=== PATIENT | male | born 2000 | race Caucasian/White ===

== ENCOUNTER 2025-02-14 20:23 | Inpatient (IN) | payer MEDICAID ==
[~2025-02-14] VITALS: Ht 177.8 cm; Wt 68.9 kg
[2025-02-14 19:10] VITALS: BP 111/53; PULSE 68; RESP 17; TEMP 98; O2SAT 98
--- NOTE | 2025-02-14 20:33 | ELECTROCARDIOGRAPH REPORT ---
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 Adams Cartagena Measurements Intervals [place] Rate: 94 P: 92 ID: [id number] QRS: 98 QRSD: 84 T: 38 QT: 311 QTc: 389 Interpretive Statements Sinus rhythm Right atrial enlargement Borderline right axis deviation LVH by voltage ST elev, probable normal early repol pattern Electronically Signed On 02-18-2025 21:45:[address] Adams Cartagena Please click the below link to view image of tracing.
[2025-02-14 20:44] LABS: MEAN PLATELET VOLUME 7.8 FL (7.4-10.4); RED CELL DISTRIBUTION WIDTH 14.7 % (11.5-14.5)
--- NOTE | 2025-02-14 20:59 | RADIOLOGY REPORT ---
CHEST RADIOGRAPH Indication: CP Technique: Single frontal view of the chest was obtained COMPARISON: None FINDINGS: Lungs and pleural spaces are clear. Cardiac silhouette and ralph are within normal limits. Bones and soft tissues demonstrate no significant abnormality. IMPRESSION: No acute disease.
[2025-02-14 21:04] LABS: CREATININE 1.20 MG/DL (0.60-1.10); PRO BRAIN NATRIURETIC PEPTIDE < 30 PG/ML (0-125); TOTAL CARBON DIOXIDE 26.6 MMOL/L (24-32); eCRCL 90 ML/MIN; eGFR 73 ML/MIN
[2025-02-14] MEDS: ketorolac trometh 30MG/ML vial 30 MG/ML VIAL IM ONE (23:12)
--- NOTE | 2025-02-15 00:12 | Physician Documentation ---
History of Present Illness ~ Chief Complaint: Chest Pain Stated Complaint: SOB/CP Time Seen by MD: 22:28 HPI Patient is a 25-year-old male that presents to the emergency department for acute onset of chest pain while watching football earlier this evening. Patient reports that he was sitting at his house comfortably in his chair has been yet to hurt describing it as someone squeezing his heart. 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 Patient denies any family history of arrhyt hmias angina palpitations or any other known cardiac history. Patient reports that he has some improvement in pain if he leans slightly forward. Patient denies any shortness of breath or any radiating pain at this time. Patient denies any significant past medical history at this time. Medication Reconciliation Allergies: Coded Allergies: No Known Allergies (Unverified , 02/14/25) Review of Systems ROS As stated above in the HPI, otherwise all systems are reviewed and negative. Physical Exam Vital Signs: Temperature: 98.2, Source: Oral, Heart Rate: 73, Respiratory Rate: 15, BP: 123/68, Pulse Oximetry: 97, Weight: 68.900 Oxygen Flow Rate: 0 Physical Exam VITALS: Reviewed and as above. GENERAL: Alert, no apparent distress. HEENT: Normocephalic, atraumatic, PERRL, EOMI, dry mucosa, no erythema RESPIRATORY: Lungs clear, normal breath sounds, no respiratory distress. CHEST: No accessory muscle use, no retractions CV: Regular rate, rhythm, no edema, no murmur, No: JVD, pain with pressure to the left chest, cardiac pain with position change during examination. GI: Soft, non-tender, bowels sounds present, no rebound, guarding, or rigidity BACK: No CVA tenderness, or swelling MUSCULOSKELETAL No deformities, no edema SKIN: Warm and dry, no rash NEURO: Oriented x4, No motor or sensory deficit PSYCH: Normal mood and affect, no agitation Progress Results/Orders Results/Orders Orders - MONICA CADE Hospitalist (02/15/25 00:06) Completed Orders - MONICA CADE Ketorolac Trometh 30mg/Ml Vial (Toradol (02/14/25 22:35) Morphine 4mg/Ml Inj. (Morphine Inj.) (02/15/25 00:05) Medications Received in ER Medications (Trade) Dose Ordered Sig/Xochilt Route PRN Reason Start Time Stop Time Status Last Admin Dose Admin (Toradol inj. 30mg/ml) 30 mg ONCE ONCE IM 02/14/25 22:35 02/14/25 22:36 DC 02/14/25 23:12 30 MG (morphine inj.) 4 mg ONCE ONCE IV 02/15/25 00:05 02/15/25 00:06 DC 02/15/25 00:25 4 MG Vital Signs 02/14/25 02/14/25 02/14/25 02/14/25 20:37 23:12 23:50 23:51 Temp 98.2 98.2 Pulse 80 73 Resp 16 20 15 B/P (MAP) 154/80 123/68 (86) Pulse Ox 97 97 O2 Flow Rate 0 0 Laboratory Tests Test 02/14/25 20:38 02/14/25 22:13 02/14/25 23:13 White Blood Count 9.6 Red Blood Count 5.10 Hemoglobin 15.9 Hematocrit 46.7 Mean Corpuscular Volume 91.6 Mean Corpuscular Hemoglobin 31.2 H Mean Corpuscular Hemoglobin Concent 34.0 Red Cell Distribution Width 14.7 H Platelet Count 296 Mean Platelet Volume 7.8 Neutrophils (%) (Auto) 63.5 Lymphocytes (%) (Auto) 27.7 Monocytes (%) (Auto) 7.2 Eosinophils (%) (Auto) 0.7 Basophils (%) (Auto) 0.9 Neutrophils # (Auto) 6.1 Lymphocytes # (Auto) 2.7 Monocytes # (Auto) 0.7 Eosinophils # (Auto) 0.1 Basophils # (Auto) 0.1 CBC Comment Sodium Level 142 Potassium Level 4.0 Chloride Level 109 H Carbon Dioxide Level 26.6 Anion Gap 6 L Blood Urea Nitrogen 16 Creatinine 1.20 H Estimated GFR/1.73 m2 73 BUN/Creatinine Ratio 13.3 Glucose Level 103 Calcium Level 9.1 Troponin I High Sensitivity 57 52 56 Pro-B-Type Natriuretic Peptide < 30 Albumin 3.7 Chemistry Comments Troponin I High Sens Percent Delta 8 7 Troponin I Hi Sens Absolute Change -5 4 Medical Decision Making Findings Exam without evidence of volume overload so doubt heart failure. Given the timing of pain to ER presentation, single troponin is elevated at 56 repeat troponin stable at 52 so doubt NSTEMI. Presentation not consistent with acute PE (Wells low risk PERC negative),pneumothorax (not visualized on chest xr), thoracic aortic dissection, pericarditis, tamponade, pneumonia (no infectious symptoms, clear chest xr), myocarditis (no recent illness, neg trop). Presentation most consistent with pericarditis at this time. EKG supports suspicion for pericarditis. So plan to admit patient for additional diagnostics and pain management. Patient given Toradol with minimal improvement. Morphine ordered we will reassess and 30 minutes. Consulted for admission waiting senior quality control technician back. Have given handoff on this patient to my attending Dr. Amaro. Differential Dx:Considerations: Include: angina, aortic dissection, chest wall pain, cholelithiasis, CHF, costochondritis, esophageal reflux/spasm, gastritis, herpes zoster, myocardial infarction, pericarditis, pleuritis, pancreatitis, pneumonia, pneumothorax, pulmonary embolus, other Departure Disposition: ADMITTED INPATIENT Impression: Primary Impression: Pericarditis Additional Impression: Chest pain Condition: Stable Additional Instructions: Exam without evidence of volume overload so doubt heart failure. Given the timing of pain to ER presentation, single troponin is elevated at 56 repeat troponin stable at 52 so doubt NSTEMI. Presentation not consistent with acute PE (Wells low risk PERC negative),pneumothorax (not visualized on chest xr), thoracic aortic dissection, pericarditis, tamponade, pneumonia (no infectious symptoms, clear chest xr), myocarditis (no recent illness, neg trop). Presentation most consistent with pericarditis at this time. EKG supports suspicion for pericarditis. So plan to admit patient for risk for additional diagnostics and pain management. Patient given Toradol with minimal improvement. Morphine ordered we will reassess and 30 minutes. Referrals: NO PRIMARY CARE PROVIDER (PCP) Education Educated: Patient Educated regarding: diagnosis, treatment, prognosis, need for follow up Signature Scribe Signature: A Attestation: Scribed for Monica Cade by JIMMY Frost . 02/15/25 00:39 MONICA CADE Feb 15, 2025 00:12
[2025-02-15] MEDS: morphine 4 MG/ML inj SYRINge IV ONE (00:25)
[2025-02-15] MEDS ORDERED: magnesium hydroxide 30ml (MOM) UD suspension PO PRN (01:25)
[2025-02-15] MEDS ORDERED: potassium Cl 40MEQ/1/2NS 520ml 520 ML IV PRN (01:25)
[2025-02-15] MEDS ORDERED: magnesium Cl slow-release 64mg tablet PO PRN (01:25)
[2025-02-15] MEDS ORDERED: potassium Cl 20 mEq SR tablet PO PRN ×2 (01:25)
[2025-02-15] MEDS ORDERED: magnesium sulf-water 2g/50mL 50 ML IV PRN (01:25)
--- NOTE | 2025-02-15 01:56 | HISTORY AND PHYSICAL-Residence ---
History & Physical Providers to CC Resident Creating Document: ROBYN IBRAHIM RES ~ History of Present Illness Primary Medical Doctor: none Reason for Admit\Complaint: Chest pain History of Present Illness 25-year-old male came to ED with complaints of chest pain and shortness of Breath. He reports that the chest pain started today morning at 6:30 a.m, associated with shortness of breath while he was at rest and watching football. He states that it was at a severity of 8/10. He states that chest pain has been squeezing type of pain, constant, and slightly reduced now, at a severity of 6/10 after pain medication. He reports no radiation of pain. He states that the pain worsens on lying down, and stays constant when leaning forward. He states that his shortness of breath worsens on lying down. He denies any recent infections. He states that he has been having chest pain since a year once every month for few minutes and did not think much of it. He denies cough, fever, chills, nasal congestion, palpitations, diaphoresis, nausea, vomiting, swelling of legs. Allergies: Coded Allergies: No Known Allergies (Unverified , 02/14/25) Past Medical History Past Medical History No significant past medical history Past Surgical History Surgical History Comment Knee surgery - yajaira in femur Shoulder surgery Past Social History Social History Comment He smokes 3-4 cigarettes per day for the past 9 years He claims that he quit alcohol 5 months ago, and used to drink 1-2 bottles of alcohol per day for past the past 2 years He denies any recreational drug use ROS ROS Constitutional: No fever, chills, dizziness, weight gain or loss Eyes: No pain, erythema, discharge, blurring of vision ENT: No sore throat, epistaxis, tinnitus Cardiovascular: Reports chest pain, no palpitations, syncope, lower extremity edema, paroxysmal nocturnal dyspnea Respiratory: Reports Shortness of breath, no cough, No hemoptysis. Gastrointestinal: No Abdominal pain, vomiting,nausea,constipation,diarrhea. Normal appetite. No hematemesis or melena. Musculoskeletal: No Swelling and pain in bilateral lower legs. Integumentary: No change in skin, hair, nails. No swelling, bruising, abrasions Neurologic: No weakness,No headache, neck pain, numbness or tingling of the extremities, Psychiatric: No delusions, depression, loss of interest in normal activity or change in sleep pattern, hallucinations, suicidal ideations Endocrine: No fatigue, no weakness. polydipsia, polyuria, change in appetite, heat or cold intolerance, sweating, dry skin Hematological: No bleeding, petechiae, bruising Allergies: No asthma or urticaria Exam Vitals: Vital Signs Date Time Temp Pulse Resp B/P (MAP) Pulse Ox O2 Delivery O2 Flow Rate FiO2 02/14/25 23:51 02/14/25 23:50 98.2 73 15 97 0 General: Awake , alert, and oriented x4, resting comfortably in the bed, in no acute distress HEENT: Atraumatic, normocephalic, EOMI, anicteric sclera ; pink conjunctiva Neck: Trachea midline. Supple, full range of motion, no JVD Cardiac: Regular rhythm, regular rate with no murmurs all over the precordium, No tenderness Respiratory: Equal breath sounds bilaterally, no tachypnea, no wheezing ,rub or rales, Chest wall is symmetric and without deformity. Gastrointestinal: Abdomen symmetric, non-distended, soft, non-tender, normal bowel sounds x4 quadrant, normoactive, no hepatosplenomegaly Musculoskeletal: No pedal edema, no cyanosis Neurological: Speech is clear, alert, and oriented x 4. No motor or sensory deficit, deep tendon reflexes normal, cerebellar intact. Cranial nerves II-XII intact. Skin: Warm and dry Diagnostic Data Last Recorded Lab Results: 02/14/25203702/15/25 0206 Additional Plan Chest pain, possibly Acute pericarditis Troponins normal EKG shows ST-elevation in V2, V3, V4, II leads Pro BNP is normal Chest x-ray shows no acute disease Vitals stable WBC is normal, electrolytes are normal Plan: Ordered ibuprofen 600 mg q.6h Follow up ESR, CRP Follow up echo Follow up lipid profile Follow up urine tox screen Plan to order colchicine after echo CARLY, possibly prerenal due to dehydration Possible vasomotor nephropathy Creatinine is 1.2, baseline unknown Follow up urine lytes Code status: Full code DVT prophylaxis: SCD Pain management: Morphine 1 mg/2 mg PRN Diet/nutrition: Heart healthy diet Prognosis: Guarded Disposition: Continue medical management, Follow up echo, PT eval and DC plan Resident attestation: The patient note has been reviewed and supervised by senior residents PGY-2/ PGY-3. Patient was seen, examined and discussed with attending physician. Robyn Ibrahim MD Internal Medicine resident, PGY-1 Date of Service: Feb 15, 2025 Billing Provider: ADDIE REY MD Addendum Agree with resident suspected pericarditis - NSAID high dose - colcihine - CTA chest with IV contrast - echo - cardiology consult in am IM 3 ROBYN IBRAHIM, RES Feb 15, 2025 01:56 ADDIE REY MD Feb 15, 2025 03:51
--- NOTE | 2025-02-15 02:19 | ELECTROCARDIOGRAPH REPORT ---
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 Adams Cartagena Measurements Intervals [place] Rate: 63 P: 58 FL: 142 QRS: 87 QRSD: 91 T: 65 QT: 364 QTc: 373 Interpretive Statements Sinus rhythm Probable left ventricular hypertrophy Inferolateral infarct, acute Anterior ST elevation, probably due to LVH Electronically Signed On 02-18-2025 21:45:[address] Adams Cartagena Please click the below link to view image of tracing.
[2025-02-15] MEDS: PERFLUTREN PROTEIN-A MICROSPHR (Optison) 0.22 MG/ML 3ML VIAL IV ONE ×2 (02:21→10:17)
[2025-02-15 02:38] LABS: APTT 28 SECONDS (22-32); INR 1.0 INR
[2025-02-15 02:56] LABS: CREATININE 0.90 MG/DL (0.60-1.10); PHOSPHORUS 4.8 MG/DL (2.3-4.5); PRO BRAIN NATRIURETIC PEPTIDE < 30 PG/ML (0-125); TOTAL CARBON DIOXIDE 22.8 MMOL/L (24-32); eCRCL 120 ML/MIN; eGFR > 90 ML/MIN
[2025-02-15 02:58] LABS: CREATININE,URINE RANDOM 168.0 MG/DL; OSMOLALITY UA 950.0 MOSM/K (50-1400); URINE AMPHETAMINE SCREEN NEGATIVE (Neg); URINE BARBITUATE SCREEN NEGATIVE (Neg); URINE BENZODIAZEPINES SCREEN NEGATIVE (Neg); URINE CANNABINOID SCREEN POSITIVE (Neg); URINE COCAINE SCREEN NEGATIVE (Neg); URINE METHADONE SCREEN NEGATIVE (Neg); URINE OPIATE SCREEN POSITIVE (Neg); URINE PHENCYCLIDINE SCREEN NEGATIVE (Neg)
[2025-02-15 03:07] LABS: OSMOLALITY 289 MOSM/K (280-300)
--- NOTE | 2025-02-15 05:27 | RADIOLOGY REPORT ---
CTA Chest with intravenous contrast INDICATION: Severe chest pain. COMPARISON: None TECHNIQUE: Multidetector spiral CTA of the chest was performed of the chest with 100 cc of omnipaque 350 intravenous contrast. PULMONARY ANGIOGRAPHY PROTOCOL was utilized using a bolus-tracking technique centered on the main pulmonary artery. Coronal and sagittal multiplanar and MIP reformats were performed. Radiation Dose : 1. Chest: CTDI volume is 8.5 mGy. Dose-length product is 343.5 mGy*cm The dose indicators for CT are the volume Computed Tomography (CT) Dose Index (CTDIvol) and the Dose Length Product (DLP), and are measured in units of mGy and mGy-cm, respectively. These indicators are not patient dose, but values generated from the CT scanner acquisition factors. The report includes radiation exposure data for exposures received during this examination. FINDINGS: Pulmonary artery: No central, lobar or proximal segmental pulmonary embolus. Lower neck: Unremarkable thyroid. Lungs: No evidence of pulmonary nodule. No focal airspace disease. Right apical bleb. Central airways: Patent. Pleura: No pneumothorax. No pleural effusions. Heart/Vascular Structures: The heart is normal in size. No pericardial effusion. Thoracic aorta is normal in caliber. No aneurysm or dissection. Lymph Nodes: No mediastinal or hilar lymphadenopathy. Esophagus:Grossly unremarkable. Musculoskeletal: Unremarkable. Body wall: Unremarkable. Upper abdomen: Unremarkable. IMPRESSION: 1. No evidence of pulmonary embolism. 2. No acute intrathoracic process.
[2025-02-15] MEDS: morphine 4 MG/ML inj SYRINge IV PRN ×2 (05:36→20:47)
[2025-02-15] MEDS: magnesium sulf-water 4G/100mL 100 ML IV PRN (07:30)
[2025-02-15 07:55] LABS: CHOL/HDL RATIO 3.2 (0.00-4.99); LDL CHOLESTEROL 84 MG/DL (50-100)
[2025-02-15] MEDS: K and/or MAG REPLACEMENT MC SCH (08:00)
[2025-02-15] MEDS: docusate sod 100mg capsule PO SCH (08:57)
--- NOTE | 2025-02-15 12:59 | ELECTROCARDIOGRAPH REPORT ---
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 Adams Cartagena Measurements Intervals [place] Rate: 62 P: 50 UT: 146 QRS: 77 QRSD: 96 T: 46 QT: 364 QTc: 370 Interpretive Statements Sinus rhythm ST elevation suggests acute pericarditis Electronically Signed On 02-18-2025 21:45:[address] Adams Cartagena Please click the below link to view image of tracing.
[2025-02-15 16:31] LABS: URINE AMPHETAMINE SCREEN NEGATIVE (Neg); URINE BARBITUATE SCREEN NEGATIVE (Neg); URINE BENZODIAZEPINES SCREEN NEGATIVE (Neg); URINE CANNABINOID SCREEN POSITIVE (Neg); URINE COCAINE SCREEN NEGATIVE (Neg); URINE METHADONE SCREEN NEGATIVE (Neg); URINE OPIATE SCREEN POSITIVE (Neg); URINE PHENCYCLIDINE SCREEN NEGATIVE (Neg)
--- NOTE | 2025-02-15 16:47 | CONSULTATION REPORT ---
History of Present Illness Providers to CC CC: WADE SMITH MD ~ Reason for Admit\Admit Dx: Cardiology consultation Refering MD: none History of Present Illness Patient is a 25-year-old male with no past medical history who presented secondary to sudden onset squeezing type chest pain that occurred last night starting at 7:30 a.m.. Pain has been constant and worse with lying flat. Denies recent viral illness or sick contacts. States pain with taking deep breath. No lower extremity edema. No previous history prior to this episode. States continued severe pain despite NSAIDs. Sed rate normal. CRP normal. Echocardiogram normal. CTA chest normal. Cardiology consultation was requested with the on-call fire protection engineering technician, Dr. Smith. Allergies: Coded Allergies: No Known Allergies (Unverified , 02/14/25) Past Medical History Medical History Comment Denies past medical history Past Surgical History Surgical History Comment Orthopedic surgeries Past Family History Family History Comment Denies family history of cardiac disease Past Social History Social History Comment Denies alcohol use. States he quit five months ago. He smokes two cigarettes a day. Denies other drug use. Physical Exam Last Vital Signs Recorded: RN Vital Signs have been reviewed: Yes, Temperature: 98.2, Source: Oral, Heart Rate: 59, Respiratory Rate: 18, BP: 112/66, Pulse Oximetry: 97, Weight: 68.900 Physical Exam General: Awake, alert, oriented. No apparent distress Neck: Supple. Normal range of motion. No JVD Respiratory: Lungs are clear to auscultation bilaterally. Poor inspiratory effort. Chest: Normal shape and size. No accessory muscle use. Cardiovascular: Regular rate and rhythm. S1-S2. No murmur, gallop, rub. Gastrointestinal: Abdomen is soft. Nontender to palpation. Extremities: No lower extremity edema, cyanosis or clubbing. Neurologic: Alert and oriented x4. Nonfocal Psychiatric: Normal mood and affect. Skin: Normal color. Warm and dry. Review of Systems ROS Patient complains of squeezing type chest pain and shortness for breath. Was asked, but otherwise denies review of systems. Results EKG EKG EKG interpreted by myself: Initial EKG 02/15/2025 at 2:[address]- elevation globally with ST depression in AVR. LVH by voltage. Subsequent EKG at 1254. Continued ST-elevation globally. No TN depression. LVH by voltage Echocardiogram Echocardiogram Preliminary echocardiogram with preserved LVEF. No pericardial effusion. No valvular heart disease. Diagram Lab Result Diagram: 02/14/25203702/15/25 0206 Assessment/Plan Additional Plan This is a 25-year-old male who presented secondary to chest pain as described in HPI. The following is his problem list: Chest pain Likely acute pericarditis Sudden negative, CRP negative. TTE with preserved EF. No pericardial effusion. Denies viral prodrome --recommend treatment with NSAIDs. Agree with ibuprofen 600 mg t.i.d.. Agree with colchicine. --Further pain management per the hospitalist service. He will require follow up with primary care provider and referral to fire protection engineering technician. Case discussed with Dr. Adrian Smith who is in agreement with this plan. Supervising MD Supervising Physician: ELMER Archuleta NP Feb 15, 2025 16:47
[2025-02-15] MEDS ORDERED: methylPREDNISolone sod succ/PF 40mg inj. IV ONE (17:35)
--- NOTE | 2025-02-15 17:38 | PROGRESS NOTE- Residence ---
Progress Note - Resident Providers to CC Resident Creating Document: CLAUDETTE DUNN, RES ~ Antibiotic Timeout Antibiotic Ordered?: No Subjective Patient was seen and examined at bedside. Patient complains of nonradiating, squeezing type of chest pain of intensity 01/27, not improving with aspirin and colchicine. Patient endorses that pain is getting worse with lying on bed flat and mild improvement with leaning forward position. Patient denies any other concerns or complaints at the moment. Objective Vital Signs Date Time Temp Pulse Resp B/P (MAP) Pulse Ox O2 Delivery O2 Flow Rate FiO2 02/15/25 17:07 58 17 104/60 (75) 02/15/25 15:30 97 02/15/25 13:30 0 02/15/25 05:13 98.2 Result Diagram: 02/14/25203702/15/25 020 Awake , alert and oriented to time,place, person,not in distress HEENT: Atraumatic, normocephalic, PERRLA, EOMI, anicteric sclera ; pink conjunctiva, moist mucos membranes Neck: Trachea midline. Supple, normal range of motion, no JVD, no lymphadenopathy Chest and Respiratory: Equal breath sounds bilaterally, no tachypnea, wheezing, ronchi,rubs .Chest wall is symmetric and without deformity. No tenderness on palpation. Cardiac: S1, S2 heard,Regular rate and rhythm, no murmurs heard. Abdomen: Soft, No tenderness, No guarding or rigidity, Dai's sign negative. normal bowel sounds x4 quadrant, no hepatosplenomegaly MSK: Range of motion of all extremities are normal. There is no joint pain or joint swelling or joint erythema. There is no muscle pain or tenderness or swelling. Extremities: warm, well-perfused, No cyanosis, clubbing, 2+ pulses felt Neurological: Speech is clear, alert, and oriented x 4. No sensory or motor deficits. Cranial nerves II-XII intact. Skin: Warm and dry Psychiatry: Affect and mood are normal Coagulation Studies Laboratory Tests Test 02/15/25 02:06 02/15/25 15:40 Prothrombin Time 10.3 SECONDS (9.0-12.0) INR International Normalized Ratio 1.0 INR Activated Partial Thromboplast Time 28 SECONDS (22-32) Coagulation Comments D-Dimer < 0.19 MG/L FEU (0-0.50) D-Dimer Comment Advance Care Planning Advanced Care plannin - 30 Minutes Assessment Assessment A 25 years old male patient with no past medical history admitted with possible acute pericarditis. Plan Plan Chest pain Likely acute pericarditis Denies viral prodrome EKG showed mild ST elevations in V2, V3, V4, II leads. Troponin levels was normal CTA was normal ESR and CRP are within normal limits Echocardiogram showed preserved LVEF. No pericardial effusion. No valvular heart disease. Chest x-ray shows no acute disease D-dimer and Lipid profile is normal Urine Toxicology positive for opioids and cannabinoids. Plan: Pain management with ibuprofen 600 mg t.i.d. and Colchicine 0.6 mg b.i.d. IV Solu-Medrol 40 mg was given CARLY, likely prerenal due to dehydration, resolving Possible vasomotor nephropathy Creatinine level was down trended to 0.9 1.20 Adequate oral hydration Code status: Full code DVT prophylaxis: SCD Pain management: Morphine/ Percocet Diet/nutrition: Heart healthy diet Prognosis: Guarded Disposition: Continue medical management. Resident attestation: The patient note has been reviewed and supervised by senior residents PGY-3. Patient was seen, examined and discussed with attending physician. Darío Dunn MD Internal Medicine resident, PGY-1 Date of Service: Feb 15, 2025 Billing Provider: KRISTAL CASTELLANOS MD, SUNIL KUMAR, RES Feb 15, 2025 17:38
[2025-02-15] MEDS: methylPREDNISolone sod succ/PF 40mg inj. IV ONE (18:17)
--- NOTE | 2025-02-15 18:44 | CARDIOLOGY REPORT ---
APPROVED REPORT EXAM: Comprehensive 2D, Doppler, and color-flow Echocardiogram. Patient Location: ED15 Blood Pressure: 103/50 mmHg Heart Rate: 62 bpm Rhythm: NSR Indications CHEST PAIN 8/10 SHORTNESS OF BREATH DINING ROOM TABLES SET UP ATTENDANT: None PRIOR ECHOCARDIOGRAM: None. 2D Dimensions RVDd 3.0 cm IVSd 0.7 (0.7-1.1cm) LVDd 4.9 cm PWd 0.8 (0.7-1.1cm) IVSs 1.1 (0.8-1.2cm) LVDs 3.3 (2.5-4.0cm) PWs 1.1 (0.8-1.2cm) LVOT Diameter 2.04 (1.8-2.4cm) LVEF(%) 60.9 (>50%) FS (%) 32.6 % SV 68.5 ml CO 4.5 L/min M-Mode Dimensions Left Atrium(MM) 3.59 (2.5-4.0cm) Aortic Root 2.59 (2.2-3.7cm) Aortic Cusp Exc 1.60 (1.5-2.0cm) Aortic Valve AoV Peak Venkat. 109.7 cm/s AoV VTI 23.9 cm AO Peak GR. 4.8 mmHg AO Mean GR. 3 mmHg LVOT VTI 22.93 cm LVOT Peak Venkat. 100.3 cm/s JANESSA(VTI)/BSA 3.14 cm2/m2 JANESSA (VTI) 3.14 cm2 Mitral Valve MV E Velocity 72.2 cm/s MV Peak Gr. 3 mmHg MV A Velocity 37.1 cm/s MV PHT 60 ms E/A Ratio 1.9 MVA (PHT) 3.67 cm2 MV VMax 81.5 cm/s Tricuspid Valve TR P. Velocity 209 cm/s RAP ESTIMATE 5 mmHg TR Peak Gr. 17 mmHg RVSP 22 mmHg LEFT VENTRICLE Normal LV size and wall thickness. Overall systolic function is normal. LVEF is 60-65%. RIGHT VENTRICLE Right ventricle is mildly dilated. The right ventricular systolic function is normal. RVSP is 22 mmHg. ATRIA The left atrium size is normal. The right atrium size is normal. AORTIC VALVE Trileaflet AV appears normal without stenosis. No insufficiency. MITRAL VALVE The mitral valve is normal in structure. Trace regurgitation. TRICUSPID VALVE TV appears structurally normal with mild regurgitation. PULMONIC VALVE The pulmonary valve is normal in structure. No insufficiency GREAT VESSELS The aortic root is normal in size. The ascending aorta is normal in size The IVC is normal in size and collapses >50% with inspiration. PERICARDIUM Normal pericardium. No effusion. Other Information Study Quality: Good Conclusion Normal LV size and wall thickness. Overall systolic function is normal. LVEF is 60-65%. Right ventricle is mildly dilated. The right ventricular systolic function is normal. RVSP is 22 mmHg. The left atrium size is normal. Trileaflet AV appears normal without stenosis. No insufficiency. The mitral valve is normal in structure. Trace regurgitation. TV appears structurally normal with mild regurgitation. Normal pericardium. No effusion.
[2025-02-15 20:00] VITALS: RESP 12; O2SAT 98
[2025-02-15 22:00] VITALS: BP 113/49; PULSE 60; RESP 11; TEMP 97.6; O2SAT 98
[2025-02-16] VITALS (7 sets, daily range): BP systolic 106–114; BP diastolic 46–67; PULSE 58–74; RESP 16–24; TEMP 97.1–98.1; O2SAT 96–100
[2025-02-16 07:55] LABS: MEAN PLATELET VOLUME 8.0 FL (7.4-10.4); RED CELL DISTRIBUTION WIDTH 13.9 % (11.5-14.5)
[2025-02-16 08:05] LABS: CHOL/HDL RATIO 3.0 (0.00-4.99); CREATININE 0.86 MG/DL (0.60-1.10); LDL CHOLESTEROL 79 MG/DL (50-100); TOTAL CARBON DIOXIDE 24.2 MMOL/L (24-32); eCRCL 126 ML/MIN; eGFR > 90 ML/MIN
[2025-02-16] MEDS ORDERED: dexamethasone inj 6 MG in dextrose 5%-water 100 ML IV SCH (12:25)
[2025-02-16] MEDS: dexamethasone 4mg/ml inj IV SCH (12:47)
[2025-02-16] MEDS: HYDROcodone/acetaminophen 10/325mg tab PO PRN (12:48)
--- NOTE | 2025-02-16 13:59 | PROGRESS NOTE- Residence ---
Progress Note - Resident Providers to CC Resident Creating Document: CLAUDETTE DUNN, RES ~ Antibiotic Timeout Antibiotic Ordered?: No Subjective Patient was seen at bedside. Patient still experiencing squeezing type of chest pain with 9/10 in intensity. Patient complains that he did not not sleep well last night. [facility]. Objective Vital Signs Date Time Temp Pulse Resp B/P (MAP) Pulse Ox O2 Delivery O2 Flow Rate FiO2 02/16/25 12:48 16 02/16/25 08:00 Room Air 0.0 02/16/25 07:00 97.6 74 114/67 (83 96 Result Diagram: 02/16/25 0716 02/16/25 0716 Awake , alert and oriented to time,place, person,not in distress HEENT: Atraumatic, normocephalic, PERRLA, EOMI, anicteric sclera ; pink conjunctiva, moist mucos membranes Neck: Trachea midline. Supple, normal range of motion, no JVD, no lymphadenopathy Chest and Respiratory: Equal breath sounds bilaterally, no tachypnea, wheezing, ronchi,rubs .Chest wall is symmetric and without deformity. No tenderness on palpation. Cardiac: S1, S2 heard,Regular rate and rhythm, no murmurs heard. Abdomen: Soft, No tenderness, No guarding or rigidity, Dai's sign negative. normal bowel sounds x4 quadrant, no hepatosplenomegaly MSK: Range of motion of all extremities are normal. There is no joint pain or joint swelling or joint erythema. There is no muscle pain or tenderness or swelling. Extremities: warm, well-perfused, No cyanosis, clubbing, 2+ pulses felt Neurological: Speech is clear, alert, and oriented x 4. No sensory or motor deficits. Cranial nerves II-XII intact. Skin: Warm and dry Psychiatry: Affect and mood are normal Coagulation Studies Laboratory Tests Test 02/15/25 02:06 02/15/25 15:40 02/15/25 19:37 Prothrombin Time 10.3 SECONDS (9.0-12.0) INR International Normalized Ratio 1.0 INR Activated Partial Thromboplast Time 28 SECONDS (22-32) D-Dimer < 0.19 MG/L FEU (0-0.50) D-Dimer Comment APTT (Heparin Protocol) 47 SECONDS (45-60) Coagulation Comments Advance Care Planning Advanced Care plannin - 30 Minutes Assessment Assessment A 25 years old male patient with no past medical history admitted with possible acute pericarditis. 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 Denies viral prodrome EKG showed mild ST elevations in V2, V3, V4, II leads. Troponin levels was normal CTA was normal ESR and CRP are within normal limits Echocardiogram showed preserved LVEF. No pericardial effusion. No valvular heart disease. Chest x-ray shows no acute disease D-dimer and Lipid profile is normal Urine Toxicology positive for opioids and cannabinoids. Plan: Pain management with ibuprofen 600 mg t.i.d. and Colchicine 0.6 mg b.i.d. IV Solu-Medrol 40 mg was given 02/16/25: Patient still experiencing wheezing type of chest pain with severity 9/10. Continue ibuprofen 600 mg t.i.d. and colchicine 0.6 mg b.i.d. p.o. daily Started on IV Dilaudid 1 mg q.4h and 2 tablets of [place] 10/325 p.o. q.4h Started on IV Decadron 4 mg q.12h Ordered RADHA in view of suspicion of autoimmune etiology Urine toxicology on 2nd time was positive for opiates and cannabinoids. Ruled out ACS as per , the Cardiology recommendation. CARLY, likely prerenal due to dehydration, resolved Possible vasomotor nephropathy Creatinine level was down trended to 0.9 1.20 Adequate oral hydration 02/16/25: Creatinine level was normal. Adequate oral hydration Code status: Full code DVT prophylaxis: SCD Pain management: Dilaudid/[place]/ibuprofen Diet/nutrition: Heart healthy diet Prognosis: Guarded Disposition: Continue medical management. Resident MD attestation: The patient note has been reviewed and supervised by senior residents PGY-3. Patient was seen, examined and discussed with attending physician. Darío Dnun MD Internal Medicine resident, PGY-1 Date of Service: Feb 16, 2025 Billing Provider: KRISTAL CASTELLANOS MD Common Visit Codes: [id number] INP/OBS CARE(HIGH) CLAUDETTE DUNN, RES Feb 16, 2025 13:59 KRISTAL CASTELLANOS MD Feb 17, 2025 07:01
[2025-02-16] MEDS ORDERED: NO HOME MEDS (15:51)
[2025-02-16] MEDS: mag hydrox/Alum hydrox/simeth 30ml oral suspension PO PRN (17:13)
[2025-02-17] VITALS (7 sets, daily range): BP systolic 104–115; BP diastolic 58–69; PULSE 61–66; RESP 12–17; TEMP 97.2–98.3; O2SAT 93–98
--- NOTE | 2025-02-17 00:02 | ELECTROCARDIOGRAPH REPORT ---
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 Nahomy Smith Measurements Intervals [place] Rate: 55 P: 41 CO: 160 QRS: 76 QRSD: 102 T: 43 QT: 360 QTc: 345 Interpretive Statements Sinus rhythm st elevation with earlyu repol Electronically Signed On 02-22-2025 6:57:[address] Nahomy Smith Please click the below link to view image of tracing.
[2025-02-17 06:24] LABS: MEAN PLATELET VOLUME 8.1 FL (7.4-10.4); RED CELL DISTRIBUTION WIDTH 14.0 % (11.5-14.5)
[2025-02-17 06:29] LABS: CREATININE 0.90 MG/DL (0.60-1.10); TOTAL CARBON DIOXIDE 27.3 MMOL/L (24-32); eCRCL 120 ML/MIN; eGFR > 90 ML/MIN
[2025-02-17] MEDS: ondansetron/PF 4mg/2ml inj IV PRN (07:35)
[2025-02-17] MEDS: dexamethasone 4mg/ml inj IV SCH (13:47)
[2025-02-17] MEDS: ketorolac trometh 30MG/ML vial 30 MG/ML VIAL IM SCH (13:49)
--- NOTE | 2025-02-17 17:46 | PROGRESS NOTE- Residence ---
Progress Note - Resident Providers to CC Resident Creating Document: CLAUDETTE DUNN, RES ~ Antibiotic Timeout Antibiotic Ordered?: No Subjective Patient was seen and examined at bedside. Patient still continues to experience chest pain with severity of 8/10 And pain does not improve with pain medication. No acute overnight symptoms noted. Patient denies any other concerns or complaints at the moment. Objective Vital Signs Date Time Temp Pulse Resp B/P (MAP) Pulse Ox O2 Delivery O2 Flow Rate FiO2 02/17/25 15:13 16 02/17/25 11:00 98.3 66 104/62 (76) 97 Room Air 02/17/25 08:00 0.0 Result Diagram: 02/17/2560302/17/25 06 Awake , alert and oriented to time,place, person,not in distress HEENT: Atraumatic, normocephalic, PERRLA, EOMI, anicteric sclera ; pink conjunctiva, moist mucos membranes Neck: Trachea midline. Supple, normal range of motion, no JVD, no lymphadenopathy Chest and Respiratory: Equal breath sounds bilaterally, no tachypnea, wheezing, ronchi,rubs .Chest wall is symmetric and without deformity. No tenderness on palpation. Cardiac: S1, S2 heard,Regular rate and rhythm, no murmurs heard. No gallops or friction rubs. No tenderness on palpation. Abdomen: Soft, No tenderness, No guarding or rigidity, Dai's sign negative. normal bowel sounds x4 quadrant, no hepatosplenomegaly MSK: Range of motion of all extremities are normal. There is no joint pain or joint swelling or joint erythema. There is no muscle pain or tenderness or swelling. Extremities: warm, well-perfused, No cyanosis, clubbing, 2+ pulses felt Neurological: Speech is clear, alert, and oriented x 4. No sensory or motor deficits. Cranial nerves II-XII intact. Skin: Warm and dry Psychiatry: Affect and mood are normal Coagulation Studies Laboratory Tests Test 02/15/25 02:06 02/15/25 15:40 02/15/25 19:37 Prothrombin Time 10.3 SECONDS (9.0-12.0) INR International Normalized Ratio 1.0 INR Activated Partial Thromboplast Time 28 SECONDS (22-32) D-Dimer < 0.19 MG/L FEU (0-0.50) D-Dimer Comment APTT (Heparin Protocol) 47 SECONDS (45-60) Coagulation Comments Assessment Assessment A 25 years old male patient with no past medical history admitted with possible acute pericarditis. 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 Patient is living at substance use [facility]. Denies viral prodrome EKG showed mild ST elevations in V2, V3, V4, II leads. Troponin levels was normal CTA was normal ESR and CRP are within normal limits Echocardiogram showed preserved LVEF. No pericardial effusion. No valvular heart disease. Chest x-ray shows no acute disease D-dimer and Lipid profile is normal Urine Toxicology positive for opioids and cannabinoids. Plan: Pain management with ibuprofen 600 mg t.i.d. and Colchicine 0.6 mg b.i.d. IV Solu-Medrol 40 mg was given 02/16/25: Patient still experiencing wheezing type of chest pain with severity 9/10. Continue ibuprofen 600 mg t.i.d. and colchicine 0.6 mg b.i.d. p.o. daily Started on IV Dilaudid 1 mg q.4h and 2 tablets of [place] 10/325 p.o. q.4h Started on IV Decadron 4 mg q.12h Ordered RADHA in view of suspicion of autoimmune etiology Urine toxicology on 2nd time was positive for opiates and cannabinoids. Ruled out ACS as per , the Cardiology recommendation. 02/17/2025: Telemetry showed nonspecific mild ST elevations in 2, V2, V3 leads. Pain management with IV Dilaudid 2 mg and p.o. 2 tablets of Percocet 10/325 q.4h Discontinue ibuprofen Started on Toradol 30 mg q.6h IV dexamethasone 4 mg q.6h Follow up with RADHA in view of suspicion of autoimmune etiology CARLY, likely prerenal due to dehydration, resolved Possible vasomotor nephropathy Creatinine level was down trended to 0.9 1.20 Adequate oral hydration 02/16/25: Creatinine level was normal. Adequate oral hydration Code status: Full code DVT prophylaxis: SCD Pain management: Dilaudid/Percocet/Toradol Diet/nutrition: Heart healthy diet Prognosis: Guarded Disposition: Continue medical management. Resident attestation: The patient note has been reviewed and supervised by senior residents PGY-3. Patient was seen, examined and discussed with attending physician. Darío Dunn MD Internal Medicine resident, PGY-1 Date of Service: Feb 17, 2025 Billing Provider: KRISTAL CASTELLANOS MD Common Visit Codes: [id number] INP/OBS CARE(HIGH) CLAUDETTE DUNN, RES Feb 17, 2025 17:46 KRISTAL CASTELLANOS MD Feb 18, 2025 08:01
[2025-02-17] MEDS: heparin, porcine 5000 units/ml vial SQ SCH (19:20)
[2025-02-18] MEDS: ketorolac trometh 30MG/ML vial 30 MG/ML VIAL IV SCH (01:33)
[2025-02-18 02:00] VITALS: BP 112/56; PULSE 73; RESP 22; TEMP 97.8; O2SAT 96
[2025-02-18 05:23] LABS: HBSAG SCREEN Negative (Negative); HEP B CORE AB, IGM Negative (Negative); HEP B CORE AB, TOT Negative (Negative)
[2025-02-18 06:00] VITALS: BP 111/57; PULSE 80; RESP 15; TEMP 97.6; O2SAT 96
[2025-02-18 06:45] LABS: MEAN PLATELET VOLUME 8.2 FL (7.4-10.4); RED CELL DISTRIBUTION WIDTH 14.2 % (11.5-14.5)
[2025-02-18 06:55] LABS: CREATININE 1.03 MG/DL (0.60-1.10); TOTAL CARBON DIOXIDE 29.6 MMOL/L (24-32); eCRCL 105 ML/MIN; eGFR 87 ML/MIN
[2025-02-18 08:35] VITALS: RESP 14
[2025-02-18] MEDS ORDERED: OXYC-150 PO (10:36)
[2025-02-18] MEDS ORDERED: COL0.6T PO ×2 (10:36→12:21)
[2025-02-18] MEDS ORDERED: PRED20TA PO ×2 (10:36→12:21)
--- NOTE | 2025-02-18 12:12 | DISCHARGE SUMMARY-Residence ---
Discharge Summary Providers to CC Resident Creating Document: CLAUDETTE COTTO, RES ~ Discharge Summary Admission Diagnosis: CHEST PAIN Hospital Course DATE OF ADMISSION: 02/15/25 DATE OF DISCHARGE: 02/18/2025 Discharge Diagnosis\Comment: Chest pain Likely acute pericarditis dehydration CARLY, likely prerenal due to vasomotor nephropathy resolved Operations\Procedures: none Consultants: Dr. Adrian longo, The 911 dispatcher Complications: none Condition on DC: Stable New Medications: Oxycodone HCl/Acetaminophen (Percocet 10-325 mg Tablet) 10 Mg-325 Mg Tablet 1 TAB PO QID PRN PRN for pain for 5 Days, #30 TAB 0 Refills Prednisone* (Prednisone*) 20 Mg Tablet 2 TAB PO DAILY, #10 TAB Colchicine (Colcrys) 0.6 Mg Tablet 0.6 MG PO BID, #20 TAB Discharge Summary: History of present illness: 25-year-old male came to ED with complaints of chest pain and shortness of Breath. He reports that the chest pain started today morning at 6:30 a.m, associated with shortness of breath while he was at rest and watching football. He states that it was at a severity of 8/10. He states that chest pain has been squeezing type of pain, constant, and slightly reduced now, at a severity of 6/10 after pain medication. He reports no radiation of pain. He states that the pain worsens on lying down, and stays constant when leaning forward. He states that his shortness of breath worsens on lying down. He denies any recent infections. He states that he has been having chest pain since a year once every month for few minutes and did not think much of it. He denies cough, fever, chills, nasal congestion, palpitations, diaphoresis, nausea, vomiting, swelling of legs. Course in the hospital: Patient admitted with chest pain, he denies viral prodrome. EKG showed mild ST elevations in V2, V3, V4, II leads. Troponin levels, ESR,CRP,D-dimer, Lipid profile were normal. CTA was normal. Echocardiogram showed preserved LVEF, No pericardial effusion, No valvular heart disease. Chest x-ray shows no acute disease. Urine Toxicology positive for opioids and cannabinoids. Ruled out acute coronary syndrome. Chest pain was due to likely acute pericarditis. Patient was treated with ibuprofen, colchicine, dexamethasone, Toradol. Pain With IV Dilaudid And Percocet. RADHA was ordered in view of any autoimmune etiology and patient was advised to follow up with the [facility] lab. Patient had mild AKA due to dehydration which was is with oral hydration. Patient condition was stable at the time of discharge. Imaging: chest x ray: No acute disease. Echocardiogram: Normal LV size and wall thickness. Overall systolic function is normal. LVEF is 60-65%. Right ventricle is mildly dilated. The right ventricular systolic function is normal. RVSP is 22 mmHg. The left atrium size is normal. Trileaflet AV appears normal without stenosis. No insufficiency. The mitral valve is normal in structure. Trace regurgitation. TV appears structurally normal with mild regurgitation. Normal pericardium. No effusion. CTA chest: 1. No evidence of pulmonary embolism. 2. No acute intrathoracic process. Vital Signs Date Time Temp Pulse Resp B/P (MAP) Pulse Ox O2 Delivery O2 Flow Rate FiO2 02/18/25 08:35 14 02/18/25 06:00 97.6 80 111/57 (75) 96 Room Air 02/17/25 08:00 0.0 Laboratory Tests Test 02/16/25 13:29 02/17/25 06:04 02/18/25 06:26 White Blood Count 15.1 X10'3 15.7 X10'3 Red Blood Count 4.71 X10'6 4.76 X10'6 Hemoglobin 14.5 g/dl 14.8 g/dl Hematocrit 42.8 % 43.1 % Mean Corpuscular Volume 91.0 FL 90.6 FL Mean Corpuscular Hemoglobin 30.7 PG 31.1 PG Mean Corpuscular Hemoglobin Concent 33.8 g/dL 34.3 g/dL Red Cell Distribution Width 14.0 % 14.2 % Platelet Count 266 X10'3 274 X10'3 Mean Platelet Volume 8.1 FL 8.2 FL Neutrophils (%) (Auto) 80.9 % 87.5 % Lymphocytes (%) (Auto) 12.5 % 6.5 % Monocytes (%) (Auto) 6.2 % 5.9 % Eosinophils (%) (Auto) 0.1 % 0 % Basophils (%) (Auto) 0.3 % 0.1 % Neutrophils # (Auto) 12.2 X10'3 13.7 X10'3 Lymphocytes # (Auto) 1.9 X10'3 1.0 X10'3 Monocytes # (Auto) 0.9 X10'3 0.9 X10'3 Eosinophils # (Auto) 0.0 X10'3 0.0 X10'3 Basophils # (Auto) 0.0 X10'3 0.0 X10'3 CBC Comment Sodium Level 140 MMOL/L 139 MMOL/L Potassium Level 4.2 MMOL/L 4.3 MMOL/L Chloride Level 105 MMOL/L 104 MMOL/L Carbon Dioxide Level 27.3 MMOL/L 29.6 MMOL/L Anion Gap 8 5 Blood Urea Nitrogen 16 MG/DL 25 MG/DL Creatinine 0.90 MG/DL 1.03 MG/DL Estimated GFR/1.73 m2 > 90 ML/MIN 87 ML/MIN BUN/Creatinine Ratio 17.8 24.3 Glucose Level 111 MG/DL 81 MG/DL Calcium Level 8.9 MG/DL 8.1 MG/DL Albumin 3.4 G/DL 3.4 G/DL Amylase Level 40 U/L Lipase 21 U/L Chemistry Comments Physical Examination at discharge: Awake , alert and oriented to time,place, person,not in distress HEENT: Atraumatic, normocephalic, PERRLA, EOMI, anicteric sclera ; pink conjunctiva, moist mucos membranes Neck: Trachea midline. Supple, normal range of motion, no JVD, no lymphadenopathy Chest and Respiratory: Equal breath sounds bilaterally, no tachypnea, wheezing, ronchi,rubs .Chest wall is symmetric and without deformity. No tenderness on palpation. Cardiac: S1, S2 heard,Regular rate and rhythm, no murmurs heard. No gallops or friction rubs. No tenderness on palpation. Abdomen: Soft, No tenderness, No guarding or rigidity, Dai's sign negative. normal bowel sounds x4 quadrant, no hepatosplenomegaly MSK: Range of motion of all extremities are normal. There is no joint pain or joint swelling or joint erythema. There is no muscle pain or tenderness or swelling. Extremities: warm, well-perfused, No cyanosis, clubbing, 2+ pulses felt Neurological: Speech is clear, alert, and oriented x 4. No sensory or motor deficits. Cranial nerves II-XII intact. Skin: Warm and dry Psychiatry: Affect and mood are normal Discharge Instructions: Follow up with PCP and the [address] Adrian longo in 2 weeks. Advised to take colchicine 0.6 mg p.o. b.i.d. for 10 days. Advised to take prednisolone 20 mg p.o. daily Advised to take pain medication Percocet PRN Advised the patient to follow up with RADHA with [facility] lab. In case of any worsening symptoms, Call 911 or go to ER immediately. *Problems/Diagnosis: (1) Acute pericarditis (2) CARLY (acute kidney injury) (3) Dehydration Total Time Spent on D/C: > 30 Minutes Date of Service: Feb 18, 2025 Billing Provider: KRISTAL CASTELLANOS MD Common Visit Codes: [id number] DISCH DAY >30min CLAUDETTE COTTO, RES Feb 18, 2025 12:12 KRISTAL CASTELLANOS MD Feb 19, 2025 08:09
== END 2025-02-18 12:46 | disposition home or self-care (01) | DRG 207 ==
LOC: ER 20:24 → ED HOLD 02-15 01:19 → PCU 3S 02-15 19:00
PROVIDERS: ADMIT Internal Medicine Critical Care Medicine; ATTEND Internal Medicine
PROC: B32T1ZZ Computerized Tomography (CT Scan) of Left Pulmonary Artery using Low Osmolar Contrast (ICD-10-PCS; principal; 2025-02-15)
PROC: B3201ZZ Computerized Tomography (CT Scan) of Thoracic Aorta using Low Osmolar Contrast (ICD-10-PCS; 2025-02-15)
PROC: B32S1ZZ Computerized Tomography (CT Scan) of Right Pulmonary Artery using Low Osmolar Contrast (ICD-10-PCS; 2025-02-15)
DX: I30.8 Other forms of acute pericarditis (principal); N17.0 Acute kidney failure with tubular necrosis; E86.0 Dehydration; F17.210 Nicotine dependence, cigarettes, uncomplicated
CPT/HCPCS: 36415; 71045; 71275; 80048; 80053; 80061; 80305; 82150; 82570; 83036; 83605; 83690; 83735; 83880; 83930; 83935; 84100; 84300; 84484; 85025; 85379; 85610; 85651; 85730; 86038; 86140; 86704; 86705; 87081; 87207; 87340; 93005; 93306; 96372; 99285; G0378; J1100; J1171; J1644; J1885; J2270; J2405; J2470; J2919; Q9967